=== PATIENT | female | born 1980 | race Caucasian/White ===

== ENCOUNTER 2017-01-27 15:55 | Emergency (ER) | payer BC, OTHER ==
[~2017-01-27] VITALS: Ht 170.2 cm; Wt 110.0 kg
[2017-01-27 16:00] VITALS: Ht 170.2 cm; Wt 110.0 kg
[2017-01-27] MEDS ORDERED: DIPHENHYDRAMINE 50 MG INJ IV ONE (17:30)
[2017-01-27] MEDS ORDERED: SOD CHLORIDE 0.9% 1,000 ML IV ONE (17:30)
[2017-01-27] MEDS ORDERED: METOCLOPRAMIDE 10 MG INJ IV ONE (17:30)
--- NOTE | 2017-01-27 17:53 | RADRPT ---
PROCEDURE: CT Head without. CLINICAL INDICATION: Headache. TECHNIQUE: The study was performed utilizing a multi-slice, multidetector CT scanner. Direct spira l 1 mm axial sections were obtained through the head without the use of intravenous contrast materia l. 1 or more of the following dose reduction techniques were utilized: Automated exposure control, adjustment of the mA and/or kV according to patient's size, iterative reconstruction technique. Co jesús and sagittal reformations were obtained. The images were reviewed on a PACS workstation. RADIATION DOSE: CTDIvol: 44.8 mGyDLP: 720.2 mGy-cm COMPARISON: No prior studies are available for comparison. FINDINGS: There is no intracranial hemorrhage, extra-axial fluid collection, mass lesion, midline shift or hyd rocephalus. The ventricles, sulci and cisterns are within normal limits. The white matter is unrem arkable. The solis-white matter differentiation is preserved. The basal cisterns are patent. The m idline structures are intact. The orbits, calvarium and extracranial soft tissues are normal in karolina earance. The visualized paranasal sinuses, mastoid air cells and middle ear cavities are normally ae rated. IMPRESSION: 1. No acute intracranial abnormality. No intracranial hemorrhage, extra-axial fluid collection, ma ss lesion or hydrocephalous. RPTAT: HGAS .Karl Bran MD, MD Date Time Electronically viewed and signed by .Karl Bran MD, on 01/27/2017 17:53 .S/
--- NOTE | 2017-01-27 19:03 | ERD ---
ER Documentation Chief Complaint Date/Time DATE: 01/27/17 TIME: 19:00 Chief Complaint HEADACHE SINCE MORNING , NO FACIAL DROOP , B/L [employer] HPI 36-year-old female patient with a past medical history of bipolar disorder presents to the ED complaining of having a headache in the temporal region that does not radiate that started earlier today at 11 AM. Reports that it was a gradual onset.. States that she took a Tylenol 3 and half a [place] with slight relief of her pain. Describes pain as aching and pressure-like. Rates the pain a 6 out of 10. States that she is nauseous but denies any vomiting. States that earlier she was trying to get words out but she felt like her tongue was heavy and may have slightly slurred. Denies any chest pain, shortness of breath, abdominal pain, nausea, vomiting, wheezing, cough, rhinorrhea, rashes. States the pain is worse with bright lights. Denies any head or neck injuries. Denies any seizures. Reports that she also takes Lamictal, Celexa, Wellbutrin. Denies any suicidal or homicidal ideations. Denies any hallucinations. States that she smokes 5-6 cigarettes per day. ROS All systems reviewed and are negative except as per history of present illness. PMhx/Soc History of Surgery: No Anesthesia Reaction: No Hx Neurological Disorder: No Hx Respiratory Disorders: No Hx Psychiatric Problems: No Hx Miscellaneous Medical Probl: No Hx Alcohol Use: No Hx Substance Use: No Hx Tobacco Use: No Smoking Status: Never smoker Physical Exam Vitals Vital Signs Date Time Temp Pulse Resp B/P Pulse Ox O2 Delivery O2 Flow Rate FiO2 01/27/17 16:00 98.2 88 18 162/95 98 Physical Exam Const: [id number], well-nourished. In no acute distress. Head: Atraumatic, normocephalic Eyes: Normal Conjunctiva without injection. No purulent discharge. PERRLA. EOMI ENT: Normal external ear. Ear canal without erythema. Tympanic membrane pearly solis without effusion or bulging. Nasal canal clear with normal turbinates. Moist oropharynx without tonsillar exudates. Non-erythematous pharynx. Uvula midline. No drooling. No trismus. Neck: No cervical midline tenderness. Full range of motion. No meningismus. No cervical lymphadenopathy. No JVD. Resp: Clear to auscultation bilaterally. No wheezing, rhonchi, rales, or crackles. No accessory muscle use. No retractions. Cardio: Regular rate and rhythm. No murmurs, rubs or gallops. Abd: Soft, non tender, non distended. Normal bowel sounds. No palpable masses. No rebound tenderness. No guarding. Negative McBurney's Point. Negative Uribe's Sign. Skin: Normal skin turgor. No petechiae or rashes Back: No midline tenderness. No CVA tenderness. Ext: No cyanosis, or edema. Distal pulses intact bilaterally. Neur: Awake and alert. Normal gait. Normal coordination. Cranial Nerves II- VII intact. Normal finger to nose. Muscle strength 5/5. Sensation intact. Psych: Normal Mood and Affect Results 24 hrs Current Medications Medications (Trade) Dose Ordered Sig/Piotr Route PRN Reason Start Time Stop Time Status Last Admin Dose Admin Diphenhydramine HCl (Benadryl) 25 mg ONCE ONCE IV 01/27/17 17:30 01/27/17 17:31 DC 01/27/17 17:26 Metoclopramide HCl 10 mg 10 mg ONCE ONCE IV 01/27/17 17:30 01/27/17 17:31 DC 01/27/17 17:26 Sodium Chloride (NS) 1,000 ml @ 1,000 mls/hr Q1H ONCE IV 01/27/17 17:30 01/27/17 18:29 DC 01/27/17 17:26 Procedures/MDM This is a 36-year-old female patient with a past medical history of bipolar disorder presents to the ED complaining of a headache that started this morning. Patient is afebrile nontoxic appearing. Patient has normal vital signs. A CT of the brain without contrast ordered to further evaluate patient. CT shows no intracranial bleed, mass-effect, acute neurological deficits. There is low suspicion for subarachnoid hemorrhage, meningitis, TIA, stroke, subdural hematoma, epidural hematoma, or other emergent conditions. According to the ABCD 2 criteria, patient has a criteria of 2 and there is no indication for observation at this time. Patient states that she feels better with 1 L of normal saline, Reglan, Benadryl. Follow up with primary care physician in 1-2 days. Instructed patient to return to the ED sooner for any worsening symptoms. Patient's questions were answered. Patient understood and agreed with discharge plan. Patient discharged stable. Departure Diagnosis: Primary Impression: Headache Headache type: unspecified Headache chronicity pattern: unspecified pattern Intractability: not intractable Qualified Code: R51 - Nonintractable headache, unspecified chronicity pattern, unspecified headache type Condition: Stable Patient Instructions: Headache, Unspecified Referrals: JANA PEPPER MD (PCP) [facility] YOU HAVE RECEIVED A MEDICAL SCREENING EXAM AND THE RESULTS INDICATE THAT YOU DO NOT HAVE A CONDITION THAT REQUIRES URGENT TREATMENT IN THE EMERGENCY DEPARTMENT. FURTHER EVALUATION AND TREATMENT OF YOUR CONDITION CAN WAIT UNTIL YOU ARE SEEN IN YOUR DOCTORS OFFICE WITHIN THE NEXT 1-2 DAYS. IT IS YOUR RESPONSIBILITY TO MAKE AN APPOINTMENT FOR FOLOW-UP CARE. IF YOU HAVE A PRIMARY DOCTOR --you should call your primary doctor and schedule an appointment IF YOU DO NOT HAVE A PRIMARY DOCTOR YOU CAN CALL OUR PHYSICIAN REFERRAL HOTLINE AT IF YOU CAN NOT AFFORD TO SEE A PHYSICIAN YOU CAN CHOSE FROM THE FOLLOWING [facility] [address] [facility]. [facility] [address] [facility]. [facility] [address] [facility] [facility] [address] [facility]. [facility] [address] [facility]. [facility]. [address] [facility]. [facility] YOU HAVE RECEIVED A MEDICAL SCREENING EXAM AND THE RESULTS INDICATE THAT YOU DO NOT HAVE A CONDITION THAT REQUIRES URGENT TREATMENT IN THE EMERGENCY DEPARTMENT. FURTHER EVALUATION AND TREATMENT OF YOUR CONDITION CAN WAIT UNTIL YOU ARE SEEN IN YOUR DOCTORS OFFICE WITHIN THE NEXT 1-2 DAYS. IT IS YOUR RESPONSIBILITY TO MAKE AN APPOINTMENT FOR FOLOW-UP CARE. IF YOU HAVE A PRIMARY DOCTOR --you should call your primary doctor and schedule and appointment IF YOU DO NOT HAVE A PRIMARY DOCTOR YOU CAN CALL OUR PHYSICIAN REFERRAL HOTLINE AT . IF YOU CAN NOT AFFORD TO SEE A PHYSICIAN YOU CAN CHOSE FROM THE FOLLOWING [facility] INSTITUTIONS: [facility] [address] [place] [address] [facility] [address] [place] [address] [facility] + [facility] [address] [place] [address] [facility] Additional Instructions: Call your primary care doctor TOMORROW for an appointment during the next 2 days for further evaluation and treatment. See your psychiatrist tomorrow for follow up care.See the doctor sooner or return here if your condition worsens before your appointment time - fever, neck stiffness, vomiting, worsening headache, etc. TARA ROMAN PA-C Jan 27, 2017 19:03
[2017-01-27 19:07] VITALS: BP 120/78; PULSE 78; RESP 18; TEMP 98.2
== END 2017-01-27 19:08 | disposition home or self-care (01) ==
LOC: FTE 15:55
DX: R51 Headache (principal)
CPT/HCPCS: 70450; 96374; 96375; 99285; J1200; J2765; J7030